=== PATIENT | female | born 1995 | race Caucasian/White ===

== ENCOUNTER 2017-08-26 14:24 | Outpatient (CLI) | payer BC ==
--- NOTE | 2017-08-26 18:39 | MRI ---
MRI LUMBAR SPINE WITHOUT IV CONTRAST: 08/26/17 HISTORY: Lumbar radiculopathy. Patient states low back pain with radiation of pain into the right leg. Tingli ng right leg and foot. Symptoms have been present for two years. FINDINGS: The conus medullaris is normal appearance and terminates at the level of the L1 vertebral body. Normal signal intensity is demonstrated throughout the bone marrow. The intervertebral discs appear well hydrated and there is no significant disc bulge or disc herniat ion. There are mild facet degenerative changes seen at the L4-5 level. No intradural or extradural defect is identified, central spinal canal and neural foramina are patent. The left kidney is not seen in the expected location of the left renal fossa. This could be related to either congenital absence or surgical absence of the left kidney. Possibility of pelvic kidney ca nnot be excluded, but the pelvis is not fully imaged on this exam. IMPRESSION: 1. Normal MRI of lumbar spine. No bone marrow signal abnormality is seen to suggest bone marrow edema, and the central spinal canal and neural foramina are patent at all levels. 2. The left kidney is not seen in the expected location of the left renal fossa. This could be related to either congenital absence or surgical absence of the left kidney. Possibility of pelvic k idney cannot be excluded, but the pelvis is not fully imaged on this exam. POS: MELQUIADES
--- NOTE | 2017-08-26 18:54 | RAD ---
FOUR VIEWS LUMBAR SPINE 08/26/17 HISTORY: Lumbar radiculopathy. Patient has pain in low back with pain radiating down the right leg. FINDINGS: There are five nonribbearing lumbar type vertebral bodies. Vertebral body heights and intervertebral disc spaces are within normal limits. No fracture or subluxation is seen. No abnormal translational motion is seen between flexion and extension views. IMPRESSION: Normal views lumbar spine without fracture or subluxation. POS: MELQUIADES
== END 2017-08-26 14:25 | disposition home or self-care (01) ==
LOC: SCSMRI 14:24
PROVIDERS: ATTEND Physician Assistant Surgical
DX: M54.16 Radiculopathy, lumbar region (principal)
CPT/HCPCS: 72110; 72148